=== PATIENT | male | born 1940 | race Caucasian/White ===

== ENCOUNTER 2018-10-02 06:19 | Inpatient (IN) ==
--- NOTE | 2018-09-18 11:52 | Anesthesiology Consultation ---
Date of Service September 18, 2018 Assessment & Plan (1) Encounter for pre-operative examination: Spoke with patient on phone on 09/20/18. He was confused because Dr. Kirby told him that surgeon would give coumadin instructions and they hadn't. I called and spoke to La Nena at [facility], who acknowledged that they had 2 different phone encounters from patient calling to ask for coumadin instructions . She stated that they would talk to Dr. Sen today and call patient with instructions today. Chart Review Chart Review: Acceptable Risk for Surgery and Patient seen in Pre Admission Testing Consults Requested cardiac (Dr. Kirby) Patient was seen by Dr. Kirby on 09/10/18 for preoperative evaluation. Per note, "I see no cardiac contraindication to proceeding on with the planned orthopedic procedure. I would recommend perioperative cardiac monitoring." Teaching & Discussion Pre-Anesthesia Teaching/Discussion Notes: Instructed NPO after midnight before surgery, except medications with 15 cc of water. Medication instructions provided according to the PAT guidelines. History Surgery Operation Date: 10/02/18 13:50 Proposed Procedures p Right Total Knee Arthroplasty - Domingo Sen DO Height/Weight Height: 5 ft 11 in Weight: 134.9 kg Allergies Allergy/AdvReac Type Severity Reaction Status Date / Time No Known Allergies Allergy Verified 09/12/18 11:56 Medications Home Medications Medication Instructions Recorded Confirmed Last Taken atorvastatin 10 mg PO QAM 09/12/18 09/12/18 Unknown carvedilol 25 mg PO BID 09/12/18 09/12/18 Unknown cetirizine [Zyrtec] 10 mg PO QAM 09/12/18 09/12/18 Unknown ferrous sulfate [iron] 325 mg PO QAM 09/12/18 09/12/18 Unknown garlic 1,000 mg PO QAM 09/12/18 09/12/18 Unknown metformin 500 mg PO BID 09/12/18 09/12/18 Unknown multivitamin 1 tab PO QAM 09/12/18 09/12/18 Unknown quinapril 10 mg PO QAM 09/12/18 09/12/18 Unknown repaglinide [Prandin] 0.5 mg PO TID 09/12/18 09/12/18 Unknown sildenafil [Viagra] 100 mg PO DAILY PRN 09/12/18 09/12/18 Unknown tamsulosin 0.4 mg PO HS 09/12/18 09/12/18 Unknown tramadol 50 mg PO TID PRN 09/12/18 09/12/18 Unknown warfarin 5 mg PO UD 09/12/18 09/12/18 Unknown Past Medical History Medical History GI bleed (Resolved) R/T VIOXX USE History of TMJ disorder (Resolved) RESOLVED History of depression (Resolved) Atrial fibrillation DX 6 YEARS AGO - ON WARFARIN - FOLLOWS W/ DR. KRIBY Cardiac murmur Diabetes mellitus, type 2 NIDDM Diverticular disease Hiatal hernia Kidney stones Osteoarthritis Poor historian Presence of combination internal cardiac defibrillator (ICD) and pacemaker PLACED 2 YEARS AGO - UNSURE OF REASON - LAST CHECKED 2 WEEKS AGO - [employer] Sleep apnea Does not use a device. Sleeps on his side. Past Family History Family History Father Family history of diabetes mellitus Mother Family history of diabetes mellitus Aunt Family history of reaction to anesthesia PT REPORTS AUNT WHILE IN OR FOR ABDOMINAL SURGERY - UNSURE IF COMPLICATION R/T TO ANESTHESIA Past Surgical History Surgical History History of cardiac cath 10-12 YEARS AGO - [facility] - ABN STRESS? - NO STENTS/ANGIOPLASTY History of colonoscopy w/ polypectomy History of cystoscopy History of lithotripsy History of total hip arthroplasty BL History of total knee replacement LT Status post excision of lipoma Past Anesthesia History No Hx of Anesthesia Complications and No Family Hx of Anesthesia Complications (Aunt during surgery, unsure if it was due to anesthesia or now. ) History of PONV No Motion Sickness Screening History of Motion Sickness: No Social History Smoking Status: Never smoker Do You Dip or Chew Tobacco: No Hx Alcohol Use: Yes Alcohol type: wine alcohol intake frequency: 0-2 drinks per day (1) Hx Substance Use: No substance use type: does not use Exercise / Class Metabolic Activity II 4-5 Yardwork/Stairs/Walk up hill ([place], mows lawn by hand, walks dog daily, etc. Able to climb FOS. Denies CP or SOB. ) Review of Systems Patient denies chest pain, shortness of breath, dyspnea on exertion, reflux, cough, wheezing, palpitations. +Joint Pain (hands, knee, hip, back) Physical Exam Vital Signs BP: 135/80 P: 55 R: 18 T: 98.2 SPO2: 98% on RA Constitutional + morbidly obese ENMT Thyromental Distance: > or= 3.5 Finger Breadths (3.5) Mallampati Class: II Upper partial Neck normal visual inspection, trachea midline and + facial hair (Advised); neck extension not limited Respiratory normal respiratory effort Auscultation: lungs clear to auscultation bilaterally Cardiovascular Rate/Rhythm: regular rate and regular rhythm Heart Sounds: no murmur Vessels: no carotid bruit Neurologic moves all extremities Psychiatric Orientation: alert and oriented x 3 Testing Electrocardiogram Date: 08/31/18 68bpm, Electronic ventricular pacemaker Chest X-Ray Date: 09/18/18 Findings: + NAD FINDINGS: Cardiomediastinal and hilar silhouettes are within normal limits. Left subclavian pacer/AICD is noted. Possible small hiatal hernia. There is no pneumothorax, pleural effusion, focal airspace consolidation or overt pulmonary edema. Degenerative changes of the shoulders and spine. IMPRESSION: No acute process. Echocardiogram Date: 08/29/18 EF: 50-55% FINAL IMPRESSION: 1. Normal LV wall motion and EF estimated in the range of 50-55%. 2. Enlargement of the left atrium 3. Left ventricular hypertrophy. 4. Very dense sclerotic changes involving both the aortic and mitral valve leaf lets, as well as mitral annular calcification. 5. Trace to mild mitral, tricuspid, aortic, and pulmonic valvular insufficiency. 6. Mild pulmonary hypertension. 7. AICD wire noted traversing the right heart. Stress Test Date: 09/10/18 Type: nuclear (Lexiscan) Findings: + WNL Resting EF: 42% Resting LV Function: normal Resting RWMA: + none Valvular Disease: no significant valvular disease INTERPRETATION: Inconclusive ECG pharmacological stress test secondary to intermittent AICD pacing. FINAL IMPRESSION: Myocardial perfusion SPECT images without evidence for pharmacologically induced ischemia. Global left ventricular hypokinesis with left ventricular EF post stress at 42% (consistent with patient's known history of non ischemic cardiomyopathy). Other Testing Pacemaker Check 08/29/18 (originally a [employer] device placed on 11/20/14, with revision on 04/02/[address] [place] device.) [employer] Assura Mode DDDR Base Rate 50bpm Max Track Rate 120bpm Battery: 4.6-5.0 years remaining Summary: PVAB changed to 130->160ms to avoid false AMS. No AF. Laboratory Results 09/18/18 11:26 Blood Type O Positive 09/18/18 11:26 Antibody Screen NEGATIVE 09/18/18 11:26 PT 26.4 Seconds (9.0-12.0) H 09/18/18 11:26 INR 2.8 (0.9-1.1) H 09/18/18 11: APTT 46.6 Seconds (21.0-31.0) H* 09/18/18 11: Hemoglobin A1c 5.3 % (4.5-5.6) 09/18/18 11:26 Urine Color Yellow 09/18/18 Unknown Urine Appearance Clear (Clear) 09/18/18 Unknown Urine pH 5.5 (4.5-7.5) 09/18/18 Unknown Ur Specific [place] 1.010 (1.000-1.030) 09/18/18 Unknown Urine Protein Negative (Negative) 09/18/18 Unknown Urine Glucose (UA) Negative (Negative) 09/18/18 Unknown Urine Ketones Negative (Negative) 09/18/18 Unknown Urine Nitrite Negative (Negative) 09/18/18 Unknown Ur Leukocyte Esterase 1+ (Negative) H 09/18/18 Unknown Urine WBC (Auto) 5-10 /hpf (0-5) H 09/18/18 Unknown Urine RBC (Auto) 0-4 /hpf (0-4) 09/18/18 Unknown U Hyaline Cast (Auto) 1-5 /lpf (0-5) 09/18/18 Unknown U Epithel Cells (Auto) 0-5 /lpf (0-5) 09/18/18 Unknown Urine Bacteria (Auto) Negative (Negative) 09/18/18 Unknown
--- NOTE | 2018-09-18 12:15 | PAT Medication Instructions ---
Medication Instructions Date of Service September 18, 2018 Home Medications atorvastatin 10 mg PO QAM carvedilol 25 mg PO BID cetirizine [Zyrtec] 10 mg PO QAM ferrous sulfate [iron] 325 mg PO QAM garlic 1,000 mg PO QAM metformin 500 mg PO BID multivitamin 1 tab PO QAM quinapril 10 mg PO QAM repaglinide [Prandin] 0.5 mg PO TID sildenafil [Viagra] 100 mg PO DAILY PRN tamsulosin 0.4 mg PO HS tramadol 50 mg PO TID PRN warfarin 5 mg PO UD ASK your prescriber and surgeon warfarin 5 mg PO UD STOP taking 2 weeks before surgery garlic 1,000 mg PO QAM DO NOT take the morning of surgery cetirizine [Zyrtec] 10 mg PO QAM ferrous sulfate [iron] 325 mg PO QAM metformin 500 mg PO BID multivitamin 1 tab PO QAM quinapril 10 mg PO QAM repaglinide [Prandin] 0.5 mg PO TID Take morning of surgery With a small sip of water, OTHERWISE NOTHING TO EAT OR DRINK AFTER MIDNIGHT: atorvastatin 10 mg PO QAM carvedilol 25 mg PO BID tramadol 50 mg PO TID PRN Take evening before surgery carvedilol 25 mg PO BID metformin 500 mg PO BID repaglinide [Prandin] 0.5 mg PO TID sildenafil [Viagra] 100 mg PO DAILY PRN tamsulosin 0.4 mg PO HS tramadol 50 mg PO TID PRN Other Notes If you have any questions please call us at [phone] or [phone] or [phone] or [phone]
--- NOTE | 2018-09-18 12:39 | XRay Report ---
XR chest Pre-admission PA/Lat HISTORY: 77 years-old Male pat preoperative exam. No acute chest complaints COMPARISON: None available TECHNIQUE: PA and lateral views of the chest FINDINGS: Cardiomediastinal and hilar silhouettes are within normal limits. Left subclavian pacer/AICD is noted . Possible small hiatal hernia. There is no pneumothorax, pleural effusion, focal airspace consolidat ion or overt pulmonary edema. Degenerative changes of the shoulders and spine. IMPRESSION: No acute process. The above report was generated using voice recognition software. It may contain grammatical, syntax o r spelling errors. Electronically signed by: Frandy Leija M.D. 09/18/2018 12:38 PM
[2018-09-18 13:04] LABS: Appearance Urine Clear (Clear); Bacteria Urine Automated Negative (Negative); Bilirubin Urine Negative (Negative); Blood Urine 3+ (Negative); Color Urine Yellow; Epithelial Cell Urine Auto 0-5 /lpf (0-5); Glucose Urine UA Negative (Negative); Ketones Urine Negative (Negative); Leukocyte Esterase Urine 1+ (Negative); Nitrite Urine Negative (Negative); Protein Urine Negative (Negative); RBC Urine Automated 0-4 /hpf (0-4); Urobilinogen Urine Negative (Negative); pH Urine 5.5 (4.5-7.5)
[2018-09-18 13:07] LABS: Albumin Level 3.8 gm/dl (3.4-5.0); BUN Creatinine Ratio 19.7 (10-20); Calcium 9.9 mg/dl (8.5-10.1); Creatinine Clr Calc Pharmacy 106.5 ml/min; Est GFR (African American) 99.3; Est GFR (Non-African American) 85.7; INR 2.8 (0.9-1.1); Partial Thromboplastin Ratio 1.7; Potassium 4.6 mmol/L (3.5-5.1); Prothrombin Time 26.4 Seconds (9.0-12.0)
[2018-09-18 13:11] LABS: Partial Thromboplastin Time 46.6 Seconds (21.0-31.0)
[2018-09-18 13:33] LABS: Estimated Average Glucose 105 mg/dl; Hemoglobin A1C 5.3 % (4.5-5.6)
--- NOTE | 2018-09-19 19:21 | History & Physical Report ---
Date of Service September 18, 2018 Date of Surgery: 10/02/18 Assessment & Plan (1) Tricompartment osteoarthritis of right knee: Risks and benefits of procedure discussed in detail today, patient would like to proceed with a Right TKA @ [facility] as scheduled on 10/02/18. will obtain medical clearance prior to surgery as well as cardiac as obtain PATs at [facility]. Will need to stop his Coumadin 5 days prior to surgery, will discuss with cardiac if bridging is needed, f/u 2 weeks post op for routine post-operative care and xray, sooner if having any problems. will make arrangements for HHPT at the time of discharge. History of Present Illness Chief Complaint: right knee pain Primary Care Provider: Jose Ramon Crowe Mr Roberts is a 77 year old male who is here for a follow up of right knee pain, presents for pre-op evaluation prior to Right total knee replacement on 10/02/18. His PCP is Dr. Crowe. Patient states that he has a walker at home. Patient gets Tramadol from pain management and he has been taking it since 2016. He presents with pain and crepitus on the right side. He states that the symptoms have been chronic non-traumatic and the symptoms occur constantly. Currently the patient states that the symptoms are mild-moderate. The pain is described as aching, discomforting and throbbing. The symptoms occur intermittently. He rates his current pain as 3/10, worst is 7/10. The symptoms are aggravated by ascending stairs, descending stairs, daily activities, first steps while awake and walking. In addition to right knee pain the patient is also experiencing limping. Patient takes Coumadin daily. Patient takes Tramadol for pain. He has undergone prior Euflexxa injection with no relief. Allergies Allergy/AdvReac Type Severity Reaction Status Date / Time No Known Allergies Allergy Verified 09/12/18 11:56 Home Medications Home Medications Medication Instructions Recorded Confirmed Type atorvastatin 10 mg PO QAM 09/12/18 09/12/18 History carvedilol 25 mg PO BID 09/12/18 09/12/18 History cetirizine [Zyrtec] 10 mg PO QAM 09/12/18 09/12/18 History ferrous sulfate [iron] 325 mg PO QAM 09/12/18 09/12/18 History garlic 1,000 mg PO QAM 09/12/18 09/12/18 History metformin 500 mg PO BID 09/12/18 09/12/18 History multivitamin 1 tab PO QAM 09/12/18 09/12/18 History quinapril 10 mg PO QAM 09/12/18 09/12/18 History repaglinide [Prandin] 0.5 mg PO TID 09/12/18 09/12/18 History sildenafil [Viagra] 100 mg PO DAILY PRN 09/12/18 09/12/18 History tamsulosin 0.4 mg PO HS 09/12/18 09/12/18 History tramadol 50 mg PO TID PRN 09/12/18 09/12/18 History warfarin 5 mg PO UD 09/12/18 09/12/18 History Past Med/Surg History Medical History GI bleed (Resolved) R/T VIOXX USE History of TMJ disorder (Resolved) RESOLVED History of depression (Resolved) Atrial fibrillation DX 6 YEARS AGO - ON WARFARIN - FOLLOWS W/ DR. SAINI Cardiac murmur Diabetes mellitus, type 2 NIDDM Diverticular disease Hiatal hernia Kidney stones Osteoarthritis Poor historian Presence of combination internal cardiac defibrillator (ICD) and pacemaker PLACED 2 YEARS AGO - UNSURE OF REASON - LAST CHECKED 2 WEEKS AGO - [facility] Sleep apnea Does not use a device. Sleeps on his side. Surgical History History of cardiac cath 10-12 YEARS AGO - [facility] - ABN STRESS? - NO STENTS/ANGIOPLASTY History of colonoscopy w/ polypectomy History of cystoscopy History of lithotripsy History of total hip arthroplasty BL History of total knee replacement LT Status post excision of lipoma Family History Father Family history of diabetes mellitus Mother Family history of diabetes mellitus Aunt Family history of reaction to anesthesia PT REPORTS AUNT WHILE IN OR FOR ABDOMINAL SURGERY - UNSURE IF COMPLICATION R/T TO ANESTHESIA Social History Preferred Language: Albanian Communication Ability: Effective Houseperson Required: No Beliefs That Will Affect Care: None Current Living Situation: Alone Other Information That Helps Us Care for You: No Feels Safe at Home: Yes Safety Concerns: Feels Safe At This Time Smoking Status: Never smoker Hx Alcohol Use: Yes Hx Substance Use: No Review of Systems All systems reviewed & are unremarkable except as noted in HPI & below Constitutional: no fever, no chills and no sweats Respiratory: no cough and no dyspnea Cardiovascular: no chest pain, no dyspnea and no orthopnea Gastrointestinal: no nausea and no vomiting Integumentary: no rash and no lesions Physical Exam Vital Signs (Past 24 Hours): Ht: 5ft 11in Wt: 234.9kg BP: 144/88 Pulse: 78 Constitutional: WD/WN, vitals as above no acute distress Respiratory: normal respiratory effort, lungs clear to auscultation Cardiovascular: Rate/Rhythm: regular rate and regular rhythm Heart Sounds: no murmur Gastrointestinal (Abdomen): normal bowel sounds, soft, nontender, no hepatosplenomegaly Musculoskeletal: Right Knee Exam He ambulates with a limp, overall he has varus alignment, there is no atrophy or ecchymosis, mild effusion, diffuse tenderness to the knee greatest over medial compartment, negative patellar apprehension , mild crepitation with motion, Patella position is neutral, timoteo's negative, Sean's - lateral positive, Sean's - medial positive, Posterior drawer- negative, anterior drawer negative, valgus stress negative, varus stress negative, no extensor lag, pain with active range of motion, range of motion 0/5/115. No pain with active/passive ROM of ankle. Lower extremity strength normal. Lower extremity neuro-vascular is normal Skin: no rashes and no lesions Results & Data Diagnostic Findings Right Knee 3 view series showing showing advanced degenerative changes to the right knee, narrowing of the medial compartment and patello-femoral joint with patellar spurring noted, findings showing medial joint space narrowing of the medial compartment with osteophyte formation and subchondral sclerosis noted. overall varus alignment. no acute bony pathology noted.
[~2018-10-02 06:19] MED LIST: ACETAMINOPHEN 500 MG TAB PO SCH; CEFAZOLIN 3000MG 65 ML IV SCH; CeleBREX 200 MG CAP PO SCH; FAMOTIDINE 20 MG TAB PO SCH; GABAPENTIN 300 MG PO SCH; LR 500ML BOLUS, THEN 15ML/HR IV SCH; METOCLOPRAMIDE HCL 10 MG TABLET PO SCH; ROPIVACAINE 0.5% HCL/PF 150 MG, BUPIVACAINE 0.5% MPF 30 ML, EPINEPHrine 30MG/30ML (OR U... INFIL SCH; TRANEXAMIC ACID 1,000 MG **IV Pre-op IV SCH; dexAMETHasone 4 MG TAB PO SCH
[2018-10-02] MEDS ORDERED: TRANEXAMIC ACID 1,000 MG **IV Intra-op IV SCH (06:30)
[2018-10-02] MEDS ORDERED: BUPIVACAINE 0.5 % 5 MG/1 ML PF 10ML VIAL ONE (06:33)
[2018-10-02] MEDS ORDERED: ROPIVACAINE 0.5% 5 MG/ML 30 ML VIAL ONE (06:33)
[2018-10-02 07:37] LABS: INR 1.1 (0.9-1.1); Partial Thromboplastin Ratio 1.1; Prothrombin Time 11.6 Seconds (9.0-12.0)
[2018-10-02] MEDS ORDERED: fentaNYL citrate 100 MCG/2 ML VIAL ONE (07:37)
[2018-10-02] MEDS ORDERED: MIDAZOLAM HCL 1 MG/ML 2ML VIAL ONE (07:37)
--- NOTE | 2018-10-02 08:34 | History & Physical Bridge Note ---
Date of Service October 02, 2018 History & Physical Bridge Note I have examined the patient, reviewed the History & Physical and in the interval since the performance of the History & Physical I have noted the following changes of clinical significance: no changes noted
[2018-10-02] MEDS ORDERED: POVIDONE-IODINE OP SOLN 30 ML BTL ONE (09:05)
[2018-10-02] MEDS ORDERED: BACITRACIN INJ 50,000 UNIT VIAL ONE (09:05)
[2018-10-02] MEDS ORDERED: ORTHO JOINT ANESTHETIC ONE (09:05)
[2018-10-02] MEDS ORDERED: PROPOFOL IV EMULSION 10 MG/ML 20 ML VIAL IV ONE (10:16)
[2018-10-02] MEDS ORDERED: LIDOCAINE HCL 2% 2 ML VIAL/AMP(20MG/ML) INFIL ONE (10:16)
--- NOTE | 2018-10-02 10:40 | Anesthesiology Progress Note ---
Date of Service October 02, 2018 [address] with the [facility] who assured me that taping a magnet over the ICD will definitely disable the device and removing the magnet will cause it to revert to its previous settings. Physical Exam Vital Signs Last Vital Signs Temp 36.9 C 10/02/18 07:47 Pulse 50 L 10/02/18 07:47 Resp 18 10/02/18 07:47 BP 163/77 H 10/02/18 07:47 Pulse Ox 95 10/02/18 07:47 Results & Data Medications Administered Acetaminophen (Tylenol) 1,000 mg PO PREOP NAT Stop: 10/02/18 18:00 Last Admin: 10/02/18 08:03 Dose: 1,000 mg Documented by: [id number] Celecoxib (Celebrex) 200 mg PO PREOP NAT Stop: 10/02/18 18:00 Last Admin: 10/02/18 08:04 Dose: 200 mg Documented by: [id number] Dexamethasone (Decadron) 8 mg PO PREOP NAT Stop: 10/02/18 18:00 Last Admin: 10/02/18 08:03 Dose: 8 mg Documented by: [id number] Famotidine (Pepcid) 20 mg PO PREOP NAT Stop: 10/02/18 18:00 Last Admin: 10/02/18 08:03 Dose: 20 mg Documented by: [id number] Gabapentin (Neurontin) 300 mg PO PREOP NAT Stop: 10/02/18 18:00 Last Admin: 10/02/18 08:03 Dose: 300 mg Documented by: [id number] Lactated Ringer's (Lr) 1,000 mls @ 15 mls/hr IV .Q24H NAT Stop: 10/02/18 18:00 Last Infusion: 10/02/18 09:42 Dose: 0 mls/hr Documented by: [id number] Admin: 10/02/18 07:45 Dose: 15 mls/hr Documented by: [id number] Cefazolin Sodium (Ancef 3000mg) 65 mls @ 130 mls/hr IV PREOP NAT; Protocol Stop: 10/02/18 18:00 Last Admin: 10/02/18 09:39 Dose: 130 mls/hr Documented by: [id number] Metoclopramide HCl (Reglan) 10 mg PO PREOP NAT Stop: 10/02/18 18:00 Last Admin: 10/02/18 08:03 Dose: 10 mg Documented by: [id number]
--- NOTE | 2018-10-02 11:01 | Operative Report ---
Post Operative Report Pre & Post Diagnosis Operation Date: 10/02/18 09:40 Pre-Op Diagnosis: Right Knee Osteoarthritis Post-Op Diagnosis: Right Knee Osteoarthritis Procedure Operation Date: 10/02/18 09:40 Actual Procedures p Right Total Knee Arthroplasty(Right) utilizing journey to non-bloc total knee arthroplasty size 7 femur 6 tibia 11 polyethylene 32 oval patella- Domingo Sen DO Surgeon Domingo Sen DO Covered Button Maker Sonny OG Estimated Blood Loss 5 Findings Consistent with Post-Op Diagnosis Patient presents with severe end-stage DJD varus alignment bone to bone changes subchondral cystic changes marginal osteophytes varus alignment of approximately 5 degrees with large effusion patient has had a long-standing DJD the above findings are noted with eburnated [id number] tricompartmentally Specimens Bone and cartilage Drains Medium bore Hemovac Complications none Disposition Accompanied Patient To Recovery: No Disposition: Recovery Room Indications Patient presents with severe end-stage tricompartmental degenerative joint disease described above patient's a failed attempts at conservative management with physical therapy anti-inflammatories relative rest activity modifications corticosteroid injections Visco supplementations bracing patient presents for right total knee arthroplasty Description of Procedure After proper prepping and draping of the Right lower extremity anterior midline incision was made over the region of the extensor extensor mechanism after meticulous hemostasis was obtained and maintained in subcutaneous tissues a medial parapatellar incision was made The patella was subluxed lateralward the medial lateral gutter were cleaned from any hypertrophic synovitis and scar tissue of the distal femoral block was placed and the distal femoral osteotomy cut was made subsequently the chamfers anterior and posterior osteotomy cuts were made utilizing the 4-in-1 block the tibia was subsequently subluxed anteriorward medial and ateral meniscal remnants were excised in their entirety remnants of the anterior and posterior cruciate ligaments were excised in their entirety excellent exposure of the proximal tibia was obtained the tibial osteotomy guide was placed on the proximal tibial osteotomy cut was made once again the knee was irrigated with copious amounts of sterile saline solution the patella was subsequently everted lateralward thickened scar tissue around the patella was removed the patella was subsequently cut utilizing a freehand technique and was drilled prepared for final preparation and placement of patella socially flexion-extension gaps were checked and the equal and symmetric trials were placed to the appropriate femoral and tibial trials with poly-spacer being placed for equal flexion and extension gaps and full range of motion including extension to 0 and flexion to 140 the trial components after having been taken to recovery range of motion was subsequently removed meticulous hemostasis was obtained and maintained subsequently a knee block injection of joint cocktail including ropivacaine 0.5% 150 mg. Bupivacaine 0.5% epinephrine 1-200,030 mL's toradol 30 mg dexamethasone 4 mg ketamine 10 mg clonidine 100 micrograms normal saline solution 30 mg was infiltrated into the soft tissues of the posterior knee medial lateral gutters and periosteal synovium special attention was paid to protect neurovascular structures at all times subsequently trial components having been removed the knee was irrigated with sterile saline solution. debris was removed the proximal tibia was subsequently prepared and was made ready for the placement of the tibial component tibial component was also cemented and tamped into position the femoral component was subsequently placed and cemented in the position the patellar component was subsequently cemented in position because hemostasis once again obtained and maintained wound having been thoroughly irrigated with debridement and debridement lavage was performed as well as a medial parapatellar incision closed with #1 Vicryl in interrupted fashion subcutaneous was closed with #2 Vicryl skin was closed with skin clips. PA-C was necessary for prepping and drapping as well as wound closure of deep fascia Sub cutaneous tissue and skin and was necessary for the case. A sterile compressive dressing was placed patient was taken to recovery in stable condition of report dictated by Mckinley I attest to the content of the Intraoperative Record and any orders documented therein. Any exceptions are noted below. I attest to the content of the Intraoperative Record and any orders documented therein. Any exceptions are noted below.
[2018-10-02] MEDS ORDERED: HYDROmorphone INJ 1 MG/ML SYRINGE IV PRN ×2 (12:02→12:15)
[2018-10-02] MEDS ORDERED: ONDANSETRON INJ 2 MG/ML 2 ML VIAL IV PRN (12:02)
[2018-10-02] MEDS ORDERED: BISACODYL 10 MG SUPP PR PRN (12:02)
[2018-10-02] MEDS ORDERED: METOCLOPRAMIDE HCL INJ 5 MG/ML 2 ML VIAL IV PRN (12:02)
[2018-10-02] MEDS ORDERED: ALUMINUM/MAGNESIUM SUSP 30 ML UDC PO PRN (12:02)
[2018-10-02] MEDS ORDERED: NALOXONE HCL 0.4 MG/1 ML VIAL/CARP IV PRN (12:02)
[2018-10-02] MEDS ORDERED: MAGNESIUM HYDROXIDE SUSP 30 ML UDC PO PRN (12:02)
[2018-10-02] MEDS ORDERED: ATROPINE SULFATE 0.1 MG/ML 10ML SYR IV PRN (12:15)
[2018-10-02] MEDS: HydrALAZINE HCL 20 MG/ML VIAL ONE ×3 (12:15→13:26)
[2018-10-02] MEDS ORDERED: ePHEDrine sulfate 50 MG/ML AMP IV PRN (12:15)
[2018-10-02] MEDS ORDERED: PHARMACY GLYCEMIC MGMT CONSULT PRN (12:20)
[2018-10-02] MEDS ORDERED: CARBOHYDRATES FOR HYPOGLYCEMIA PO PRN (12:30)
[2018-10-02] MEDS ORDERED: GLUCOSE 10 TABS/TUBE PO PRN (12:30)
[2018-10-02] MEDS ORDERED: DEXTROSE 50% 50 ML SYRINGE IV PRN (12:30)
[2018-10-02] MEDS ORDERED: GLUCAGON FOR INJ 1 MG VIAL IM PRN (12:30)
[2018-10-02] MEDS ORDERED: GLUCOSE 40% GEL 15 GM TUBE PO PRN (12:30)
[2018-10-02] MEDS ORDERED: HydrALAZINE HCL 20 MG/ML VIAL IV STA (12:40)
--- NOTE | 2018-10-02 12:54 | XRay Report ---
XR knee RT 2V routine CLINICAL HISTORY: 77 years-old Male presenting with Surgical Post Op. TECHNIQUE: Frontal and lateral views of the right knee were obtained. COMPARISON: None. FINDINGS: Postsurgical changes of total right knee arthroplasty with patellar resurfacing. Expected intra-artic ular and soft tissue emphysema. Surgical drain in place. No periprosthetic fracture or malalignment. IMPRESSION: Expected postsurgical appearance status post total right knee arthroplasty with patellar resurfacing. Electronically signed by: Adair Toscano M.D. 10/02/2018 12:53 PM
[2018-10-02] MEDS ORDERED: SODIUM CHLORIDE 0.9% 1000ML 1,000 ML IV SCH (13:30)
--- NOTE | 2018-10-02 14:04 | Anesthesiology Progress Note ---
Date of Service October 02, 2018 Anesthesia Post Procedure Vital Signs Vital Signs: Temp Pulse Pulse Resp BP Pulse Ox 10/02/18 13:38 56 L 20 162/78 H 95 10/02/18 13:10 36.3 C L 62 14 146/70 H 96 10/02/18 12:40 36.3 C L 50 L 16 152/68 H 95 10/02/18 12:30 50 L 16 165/80 H 95 10/02/18 12:20 50 L 16 167/79 H 95 10/02/18 12:10 50 L 16 186/82 H 95 10/02/18 12:00 50 L 16 169/72 H 95 10/02/18 11:50 56 L 16 166/89 H 94 10/02/18 11:44 36.0 C L 56 L 16 148/83 H 94 10/02/18 07:47 36.9 C 50 L 18 163/77 H 95 Notes Mental Status: alert / awake / arousable Patient Amnestic to Procedure: Yes Nausea / Vomiting: adequately controlled Pain: adequately controlled Airway Patency, RR, SpO2: stable & adequate BP & HR: stable & adequate Hydration State: stable & adequate Anesthetic Complications: no major complications apparent and Pt Satisfied with anesthetic care
--- NOTE | 2018-10-02 14:41 | Consultation ---
Date of Consultation October 02, 2018 Assessment & Plan (1) Tricompartment osteoarthritis of right knee: S/p R. TKA with Dr. Sen on 10/02 without any complications. Presently has scant sanguinous drainage from his drain. - Post-operative care per primary team (2) Atrial fibrillation: Long-standing. On warfarin at home; INR was 1.1 on day of surgery. - Continue beta-delmar - Restart warfarin when approved by primary team; Chads-Vasc of 4. No need to bridge prior to discharge, given he is a medium-risk patient with a fairly high- risk surgery. (3) Hypertension: BP is 160/80 post-operatively. - Continue beta-delmar - Quinapril is not on formulary; switch to enalapril (4) Diabetes mellitus, type 2: Only on metformin and repaglinide as outpatient. - Sliding scale insulin History of Present Illness Attending Physician: Domingo Sen DO History of Present Illness 77-year-old male with a history of hypertension diabetes, A. fib who presents as a postop medical consult after a right TKA with Dr. Sen on 10/02. Operative report indicates no complications for the surgery. The patient is in no acute distress in bed. He still under some effects of the anesthesia, so he easily dozes off during our conversation. But he denies any right knee pain, any shortness of breath, chest pain, rash, nausea, vomiting, or other systemic symptoms. Per the RN, he has had mild sanguinous drainage from his right knee drain, but otherwise no complications. Allergies Allergy/AdvReac Type Severity Reaction Status Date / Time No Known Allergies Allergy Verified 10/02/18 07:33 Home Medications Home Medications Medication Instructions Recorded Confirmed Type atorvastatin 10 mg PO QAM 09/12/18 10/02/18 History carvedilol 25 mg PO BID 09/12/18 10/02/18 History cetirizine [Zyrtec] 10 mg PO QAM 09/12/18 10/02/18 History ferrous sulfate [iron] 325 mg PO QAM 09/12/18 10/02/18 History garlic 1,000 mg PO QAM 09/12/18 10/02/18 History metformin 500 mg PO BID 09/12/18 10/02/18 History multivitamin 1 tab PO QAM 09/12/18 10/02/18 History quinapril 10 mg PO QAM 09/12/18 10/02/18 History repaglinide [Prandin] 0.5 mg PO TID 09/12/18 10/02/18 History sildenafil [Viagra] 100 mg PO DAILY PRN 09/12/18 09/12/18 History tamsulosin 0.4 mg PO HS 09/12/18 10/02/18 History tramadol 50 mg PO TID PRN 09/12/18 10/02/18 History warfarin 5 mg PO UD 09/12/18 10/02/18 History Patient History Medical History GI bleed (Resolved) R/T VIOXX USE History of TMJ disorder (Resolved) RESOLVED Atrial fibrillation DX 6 YEARS AGO - ON WARFARIN - FOLLOWS W/ DR. SAINI Cardiac murmur Diabetes mellitus, type 2 NIDDM Diverticular disease Hiatal hernia Kidney stones Osteoarthritis Poor historian Presence of combination internal cardiac defibrillator (ICD) and pacemaker PLACED 2 YEARS AGO - UNSURE OF REASON - LAST CHECKED 2 WEEKS AGO - [employer] Sleep apnea Does not use a device. Sleeps on his side. Surgical History History of cardiac cath 10-12 YEARS AGO - [facility] - ABN STRESS? - NO STENTS/ANGIOPLASTY History of colonoscopy w/ polypectomy History of cystoscopy History of lithotripsy History of total hip arthroplasty BL History of total knee replacement LT Status post excision of lipoma Family History Father Family history of diabetes mellitus Mother Family history of diabetes mellitus Aunt Family history of reaction to anesthesia PT REPORTS AUNT WHILE IN OR FOR ABDOMINAL SURGERY - UNSURE IF COMPLICATION R/T TO ANESTHESIA Social History Preferred Language: [place] Communication Ability: Effective Manager Of Construction Required: No Beliefs That Will Affect Care: None Current Living Situation: Alone Other Information That Helps Us Care for You: No Feels Safe at Home: Yes Safety Concerns: Feels Safe At This Time Smoking Status: Never smoker Hx Alcohol Use: Yes Hx Substance Use: No Review of Systems Constitutional: no fever, no chills and no sweats Eyes: no diplopia Ear, Nose, Mouth, Throat: no ear trauma, no nasal discharge and no dental pain Respiratory: no cough, no chest congestion and no dyspnea Cardiovascular: no chest pain, no dyspnea on exertion, no palpitations and no syncope Gastrointestinal: no abdominal pain, no belching, no constipation, no diarrhea/loose stools, no blood in stools and no melena Musculoskeletal: no back pain, no joint pain and no muscle weakness Integumentary: no rash, no skin ulcer and no erythema Neurologic: no generalized weakness, no loss of sensation, no numbness and no paresthesia Psychiatric: no depression and no anxiety Endocrine: no fatigue, no polydipsia and no polyphagia Physical Exam Vital Signs (Past 24 Hours): Last Vital Signs Temp 36.3 C L 10/02/18 13:10 Pulse 56 L 10/02/18 14:06 Resp 22 10/02/18 14:06 BP 159/81 H 10/02/18 14:06 Pulse Ox 97 10/02/18 14:06 Constitutional: WD/WN, vitals as above Eyes: EOM intact bilaterally; no conjunctival abnormality ENMT: external ear and nose normal, oropharynx normal Neck: trachea midline, no thyromegaly normal visual inspection Respiratory: normal respiratory effort, lungs clear to auscultation no respiratory distress Cardiovascular: RRR, no murmur, no edema Gastrointestinal (Abdomen): Inspection/Auscultation: abdomen normal to inspection; abdomen not distended Musculoskeletal: no cyanosis or clubbing, extremities motor strength 5/5 Knee: + knee abnormal to inspection (Right knee bandaged) and + surgical drain present Skin: no rashes, warm and dry Neurologic: moves all extremities and awake Psychiatric: Orientation: alert, oriented to person and cooperative
[2018-10-02] MEDS: INSULIN ASPART 100 UNITS/ML 3 ML PEN SC SCH ×3 (14:46→20:53)
[2018-10-02] MEDS: ORTHO WARFARIN NOMOGRAM SCH (14:52)
--- NOTE | 2018-10-02 15:18 | Pharmacy Report ---
Glycemic Control Consultation - Date of Service October 02, 2018 - Scope Scope: Glycemic Pharmacist consulted by Dr Reagan on [10-02-18] for glycemic control and to write orders per [facility] inpatient glycemic control protocol - Objective Weight: 134.127 kg Accuchecks BSG (last 24hrs): 10/02/18 10/02/18 07:16 14:36 POC Glucose 121 H 111 H HbA1c: Hemoglobin A1c 5.3 % (4.5-5.6) 09/18/18 11:26 - Recent Pertinent Medications Outpatient Anti-diabetic Regimen: * metformin 500 bid, prandin 0.5 mg TID * A1c = 5.3 % [date] Risk Factors for Insulin Resistance: * Steroids: ortho/dex, dex po intraop * Recent Surgery: POD 0 * Diet: T2DM - Assessment & Plan Assessment & Plan: ASSESSMENT: * 77 year old male now s/p R TKA. Type 2 diabetic managed on metformin and prandin at home. A1C indicates excellant control outpatient. * Patient received ortho/dex and dexamethasone preop, therefore anticipate steroid induced hyperglycemia - therefore will utilize basal/bolus dosing for postop PLAN FOR INPATIENT GLYCEMIC CONTROL: * Pt is maintained on oral antidiabetic agents as an outpatient * Oral agents are not recommended for inpatient use d/t drug interactions, changing PO intake, and difficulty titrating for acute hyper/hypoglycemia. ADA recommends re-initiating outpatient oral agents 1-2 days prior to discharge if/when appropriate if they were held on admission. * Will hold oral agents for admission and utilize SQ basal bolus insulin regimen which is the recommended regimen for inpatient glycemic control. * Will initiate weight based insulin dosing for insulin afua patient and titrate based on BSG trends. * Basal insulin * Lantus scale for tonight based upon BSG -For BSG <160 - no Lantus -For BSG 160-200 mg/dL - Lantus 15 units -For BSG >200 mg/dL - Lantus 20 units * Bolus insulin - add overnight scale * NovoLog per scale ACHS or Q6hrs while NPO * Goal Range: Low 120 mg/dL - High 160 mg/dL * Correction Factor: 15 mg/dL/unit * Nutritional / Prandial insulin per carb ratio of 1 unit per 5 grams CHO consumed * Please note that the plan above was derived based on current level of insulin resistance and hospital stress. These recommendations are appropriate for inpatient admission only. Plan of care upon discharge will need to be reassessed to avoid potential outpatient hypo/hyperglycemia. Thank you.
[2018-10-02] MEDS: ENALAPRIL MALEATE 10 MG TAB PO SCH (15:33)
[2018-10-02] MEDS: ACETAMINOPHEN 500 MG TAB PO SCH ×2 (15:34→21:42)
[2018-10-02] MEDS ORDERED: WARFARIN SOD 5 MG TAB PO SCH (16:00)
[2018-10-02] MEDS: CEFAZOLIN 2000MG 2,000 MG/15 ML SYR IV SCH (18:47)
[2018-10-02] MEDS: DOCUSATE SODIUM 100 MG CAP PO SCH (20:33)
[2018-10-02] MEDS: SENNA 8.6 MG TAB PO SCH (20:34)
[2018-10-02] MEDS: CARVEDILOL 25 MG TAB PO SCH (20:34)
[2018-10-02] MEDS: KETOROLAC TROMETHAMINE 15 MG/ML VIAL IV SCH (20:35)
[2018-10-02] MEDS: TAMSULOSIN HCL 0.4 MG CAP PO SCH (20:35)
[2018-10-02] MEDS ORDERED: INSULIN GLARGINE SOLOSTAR 100 UNITS/ML 3 ML PEN SQ SCH (21:00)
[2018-10-02] MEDS ORDERED: LANTUS PER UNIT CHARGE SQ SCH (21:00)
[2018-10-03] MEDS: INSULIN ASPART 100 UNITS/ML 3 ML PEN SC SCH ×6 (00:32→21:47)
[2018-10-03] MEDS: KETOROLAC TROMETHAMINE 15 MG/ML VIAL IV SCH ×3 (02:10→14:41)
[2018-10-03] MEDS: CEFAZOLIN 2000MG 2,000 MG/15 ML SYR IV SCH (02:11)
[2018-10-03] MEDS: ACETAMINOPHEN 500 MG TAB PO SCH ×3 (05:49→21:53)
--- NOTE | 2018-10-03 08:02 | Anesthesiology Progress Note ---
Date of Service October 03, 2018 Anesthesia Post Procedure Vital Signs Vital Signs: Temp Pulse Pulse Resp BP Pulse Ox 10/03/18 04:00 36.5 C 50 L 18 150/69 H 96 10/02/18 23:13 36.7 C 55 L 18 155/68 H 97 10/02/18 20:32 65 121/67 92 10/02/18 18:44 37.0 C 79 19 142/66 H 93 10/02/18 16:14 36.4 C L 54 L 18 171/71 H 96 10/02/18 15:10 36.4 C L 55 L 18 167/76 H 97 10/02/18 14:06 56 L 22 159/81 H 97 10/02/18 13:38 56 L 20 162/78 H 95 10/02/18 13:10 36.3 C L 62 14 146/70 H 96 10/02/18 12:40 36.3 C L 50 L 16 152/68 H 95 10/02/18 12:30 50 L 16 165/80 H 95 10/02/18 12:20 50 L 16 167/79 H 95 10/02/18 12:10 50 L 16 186/82 H 95 10/02/18 12:00 50 L 16 169/72 H 95 10/02/18 11:50 56 L 16 166/89 H 94 10/02/18 11:44 36.0 C L 56 L 16 148/83 H 94 Notes Mental Status: alert / awake / arousable and participated in evaluation Patient Amnestic to Procedure: Yes Nausea / Vomiting: adequately controlled Pain: adequately controlled Airway Patency, RR, SpO2: stable & adequate BP & HR: stable & adequate Hydration State: stable & adequate Neuraxial Anesthesia: was administered and sensory block resolved Anesthetic Complications: no major complications apparent and Pt Satisfied with anesthetic care
[2018-10-03 08:14] LABS: Hematocrit (blood only) 34.8 % (42-52); Mean Corpuscular Hgb Conc 31.6 g/dL (32-36); Mean Corpuscular Volume 94.3 fL (80-100); Mean Platelet Volume 10.6 fL (7.4-10.4); Platelet Count 149 K/uL (130-400); RDW Coefficient of Variation 12.5 % (11.5-14.5); RDW Standard Deviation 42.9 fL (36.4-46.3); Red Blood Count 3.69 M/uL (4.7-6.1); White Blood Count 12.43 K/uL (4.8-10.8)
[2018-10-03 08:24] LABS: INR 1.2 (0.9-1.1); Prothrombin Time 11.8 Seconds (9.0-12.0)
[2018-10-03] MEDS: ATORVASTATIN 10 MG TAB PO SCH (08:31)
[2018-10-03] MEDS: CETIRIZINE HCL 10 MG TABLET PO SCH (08:31)
[2018-10-03 08:32] LABS: BUN Creatinine Ratio 17.4 (10-20); Calcium 9.6 mg/dl (8.5-10.1); Creatinine Clr Calc Pharmacy 104.5 ml/min; Est GFR (African American) 98.3; Est GFR (Non-African American) 84.8; Potassium 3.9 mmol/L (3.5-5.1)
[2018-10-03] MEDS: ENALAPRIL MALEATE 10 MG TAB PO SCH (08:32)
[2018-10-03] MEDS: CARVEDILOL 25 MG TAB PO SCH ×2 (08:32→21:48)
[2018-10-03] MEDS: DOCUSATE SODIUM 100 MG CAP PO SCH ×2 (08:33→21:52)
[2018-10-03] MEDS: MULTIVITAMIN TAB PO SCH (08:33)
[2018-10-03] MEDS: FERROUS SULFATE 325 MG TAB PO SCH (08:33)
--- NOTE | 2018-10-03 08:35 | Orthopedic Progress Note ---
Date of Service October 03, 2018 Assessment & Plan (1) Tricompartment osteoarthritis of right knee: PT/OT; WBAT DVT Proph - Coumadin,SCD's, [place]'s Pain managment as written DC plans - OPPT Subjective POD 1 s/p Right TKA Pt sitting up in bed; Awake, alert. Pain controlled presently. States he had some pain with ambulation yesterday. Denies SOB,CP,LH. States his right foot was numb (foot drop) yesterday but that is wearing off. Physical Exam Vital Signs (Past 24 Hours): Last Vital Signs Temp 36.5 C 10/03/18 04:00 Pulse 50 L 10/03/18 04:00 Resp 18 10/03/18 04:00 BP 150/69 H 10/03/18 04:00 Pulse Ox 96 10/03/18 04:00 Physical Exam: Dressings C/D/I. Calves soft, NT. NV intact. HV 225ml's latest shift. Good DF/PF right foot. Some residual numbness. Results & Data Laboratory Results 10/03/18 10/03/18 10/03/18 Range/Units 08:17 07:35 07:35 WBC (4.8-10.8) K/uL RBC (4.7-6.1) M/uL Hgb (14.0-18.0) g/dL Hct (42-52) % MCV (80-100) fL MCH (25-34) pg MCHC (32-36) g/dL RDW Std Deviation (36.4-46.3) fL RDW Coeff of Buzz (11.5-14.5) % Plt Count (130-400) K/uL MPV (7.4-10.4) fL PT 11.8 (9.0-12.0) Seconds INR 1.2 H (0.9-1.1) Sodium 143 (136-145) mmol/L Potassium 3.9 (3.5-5.1) mmol/L Chloride 111 H (98-107) mmol/L Carbon Dioxide 28 (21-32) mmol/L Anion Gap 5.0 (3-11) BUN 15 (7-18) mg/dl Creatinine 0.86 (0.6-1.4) mg/dl Est Cr Clr Drug Dosing 104.5 ml/min Est GFR ( Amer) 98.3 Est GFR (Non-Af Amer) 84.8 BUN/Creatinine Ratio 17.4 (10-20) Glucose 124 H (70-99) mg/dl POC Glucose 113 H (70-99) Calcium 9.6 (8.5-10.1) mg/dl 10/03/18 10/03/18 10/03/18 Range/Units 07:35 03:57 00:17 WBC 12.43 H (4.8-10.8) K/uL RBC 3.69 L (4.7-6.1) M/uL Hgb 11.0 L (14.0-18.0) g/dL Hct 34.8 L (42-52) % MCV 94.3 (80-100) fL MCH 29.8 (25-34) pg MCHC 31.6 L (32-36) g/dL RDW Std Deviation 42.9 (36.4-46.3) fL RDW Coeff of Buzz 12.5 (11.5-14.5) % Plt Count 149 (130-400) K/uL MPV 10.6 H (7.4-10.4) fL PT (9.0-12.0) Seconds INR (0.9-1.1) Sodium (136-145) mmol/L Potassium (3.5-5.1) mmol/L Chloride (98-107) mmol/L Carbon Dioxide (21-32) mmol/L Anion Gap (3-11) BUN (7-18) mg/dl Creatinine (0.6-1.4) mg/dl Est Cr Clr Drug Dosing ml/min Est GFR ( Amer) Est GFR (Non-Af Amer) BUN/Creatinine Ratio (10-20) Glucose (70-99) mg/dl POC Glucose 113 H 118 H (70-99) Calcium (8.5-10.1) mg/dl 10/02/18 10/02/18 10/02/18 Range/Units 20:39 16:48 14:36 WBC (4.8-10.8) K/uL RBC (4.7-6.1) M/uL Hgb (14.0-18.0) g/dL Hct (42-52) % MCV (80-100) fL MCH (25-34) pg MCHC (32-36) g/dL RDW Std Deviation (36.4-46.3) fL RDW Coeff of Buzz (11.5-14.5) % Plt Count (130-400) K/uL MPV (7.4-10.4) fL PT (9.0-12.0) Seconds INR (0.9-1.1) Sodium (136-145) mmol/L Potassium (3.5-5.1) mmol/L Chloride (98-107) mmol/L Carbon Dioxide (21-32) mmol/L Anion Gap (3-11) BUN (7-18) mg/dl Creatinine (0.6-1.4) mg/dl Est Cr Clr Drug Dosing ml/min Est GFR ( Amer) Est GFR (Non-Af Amer) BUN/Creatinine Ratio (10-20) Glucose (70-99) mg/dl POC Glucose 165 H 118 H 111 H (70-99) Calcium (8.5-10.1) mg/dl
--- NOTE | 2018-10-03 10:56 | Hospitalist Progress Note ---
Date of Service October 03, 2018 Assessment & Plan (1) Tricompartment osteoarthritis of right knee: - S/P R TKA with Dr. Sen on 10/02 without any complications - DVT prophylaxis - Coumadin - Post-operative surgical care per primary team (2) Atrial fibrillation: - Paroxysmal - patient states he had a brief course of this but to his knowledge has been NSR; Also carries a H/O VT S/P Pacer/AICD - states he was shocked only once due to lead malfunction when first placed but never had a shock since -- Believes his Pacer/AICD limits are 50-180 - HR largely in the 50s - Continue Coreg 25 mg BID; Coumadin has been restarted and currently INR 1.2 - CHADs-VASC is 4; No need to bridge prior to discharge (3) Hypertension: - Elevated but stable - Continue Coreg BID; Utilize Enalapril for Quinapril interchange while hospitalized (4) Diabetes mellitus, type 2: - Hold Metformin and Repaglinid and cover with SSI; May resume on D/C (5) DVT prophylaxis: - Coumadin Disposition: Patient is stable in regards to his chronic medical conditions. Recommend to continue home regimen as previously prescribed. Continue to trend his INR with routine outpatient checking for stability. No medical reason to hold discharge when deemed suitable from orthopedics standpoint. Hospitalist service will sign off at this time. However, do not hesitate to contact us for any acute change in medical status. Subjective Reports feeling well today. States pain is largely controlled. Having a lot of output from his drain. Tolerating diet without issue. No SOB or CP. Was walking in his room on my arrival and rather steady with gait. He verbalizes no other complaints Constitutional: see below, no fever, no chills, no fatigue and no weakness Eyes: no worsening vision Ear, Nose, Mouth, Throat: no sore throat and no dysphagia Respiratory: no cough, no dyspnea and no dyspnea on exertion Cardiovascular: no chest pain, no palpitations and no edema Gastrointestinal: no abdominal pain, no nausea, no vomiting, no constipation and no diarrhea/loose stools Genitourinary (Male): no dysuria Musculoskeletal: + joint pain (minimal in R knee but controlled) Integumentary: no rash Neurologic: no unsteadiness Physical Exam Vital Signs (Past 24 Hours): Last Vital Signs Temp 36.5 C 04/04/19 04:00 Pulse 50 L 10/03/18 04:00 Resp 18 10/03/18 04:00 BP 150/69 H 10/03/18 04:00 Pulse Ox 96 10/03/18 04:00 Constitutional: WD/WN, vitals as above Eyes: + anicteric sclerae ENMT: Ears: no hearing impairment Neck: normal visual inspection and trachea midline Respiratory: normal respiratory effort, lungs clear to auscultation Cardiovascular: RRR, no murmur, no edema Chest (Breasts): Chest: + pacemaker Gastrointestinal (Abdomen): Inspection/Auscultation: normal bowel sounds Percussion/Palpation: abdomen soft; abdomen nontender Musculoskeletal: Head/Neck/Chest: normocephalic and head atraumatic Extremities: no cyanosis and no clubbing Knee: + knee abnormal to inspection (Right knee bandaged) and + surgical drain present R knee with ORESTES wrap C/D/I with drain present Skin: no rashes, warm and dry Neurologic: moves all extremities and awake Psychiatric: A+Ox3, euthymic affect Orientation: oriented to person and cooperative
[2018-10-03] MEDS: OXYCODONE HCL IR 5 MG TAB (IMMEDIATE RELEASE) PO PRN (11:40)
--- NOTE | 2018-10-03 14:23 | Pharmacy Report ---
Pharmacy Glycemic Short Note 2 - Date of Service October 03, 2018 - Glycemic Short BSG Results (Last 24 hours): 10/02/18 10/02/18 10/02/18 14:36 16:48 20:39 Glucose POC Glucose 111 H 118 H 165 H 10/03/18 10/03/18 10/03/18 00:17 03:57 07:35 Glucose 124 H POC Glucose 118 H 113 H 10/03/18 10/03/18 08:17 11:59 Glucose POC Glucose 113 H 97 OUTPATIENT ANTIDIABETIC REGIMEN: * Prandin 0.5mg TIDM, Metformin ASSESSMENT: * I met with Mr. Burch bedside. He is very knowledgeable of his type 2 diabetes. I did address his A1C of 5.3% with him. He does not endorse any lows and knows to skip Prandin when he skips a meal. He checks his BSGs 3x/D. Further, he does not report any new weight gain. * He did tell me that his PCP will likely d/c his Prandin once his knee allows him to walk/exercise. PLAN FOR INPATIENT GLYCEMIC CONTROL: * Hold outpatient oral diabetes medications * Basal insulin * no longer indicated at this juncture * Bolus insulin - loosened * NovoLog per scale ACHS or Q6hrs while NPO * Goal Range: Low 120 mg/dL - High 160 mg/dL * Correction Factor: 25 mg/dL/unit * Nutritional / Prandial insulin per carb ratio of 1 unit per 7 grams CHO consumed Discharge Recs: Would continue meds per outpt provider, given that he is not having lows at home. Can likely d/c prandin once he is able to exercise.
[2018-10-03] MEDS: ORTHO WARFARIN NOMOGRAM SCH (14:40)
[2018-10-03] MEDS ORDERED: WARFARIN SOD 5 MG TAB PO SCH (16:00)
[2018-10-03] MEDS ORDERED: INSULIN GLARGINE SOLOSTAR 100 UNITS/ML 3 ML PEN SQ SCH (21:00)
[2018-10-03] MEDS: TAMSULOSIN HCL 0.4 MG CAP PO SCH (21:52)
[2018-10-03] MEDS: SENNA 8.6 MG TAB PO SCH (21:53)
[2018-10-04] MEDS: OXYCODONE HCL IR 5 MG TAB (IMMEDIATE RELEASE) PO PRN ×2 (00:48→07:52)
[2018-10-04 05:36] LABS: Basophils # (auto) 0.05 K/uL (0-0.2); Basophils % (auto) 0.5 %; Eosinophils # (auto) 0.24 K/uL (0-0.5); Eosinophils % (auto) 2.6 %; Hematocrit (blood only) 32.5 % (42-52); Hemoglobin 10.4 g/dL (14.0-18.0); Immature Granulocytes # (auto) 0.03 K/uL (0.00-0.02); Immature Granulocytes % (auto) 0.3 %; Lymphocytes # (auto) 1.45 K/uL (1.2-3.4); Lymphocytes % (auto) 15.7 %; Mean Corpuscular Volume 93.9 fL (80-100); Mean Platelet Volume 10.4 fL (7.4-10.4); Monocytes # (auto) 1.05 K/uL (0.11-0.59); Monocytes % (auto) 11.4 %; Neutrophils # (auto) 6.39 K/uL (1.4-6.5); Neutrophils % (auto) 69.5 %; Platelet Count 133 K/uL (130-400); RDW Coefficient of Variation 12.7 % (11.5-14.5); RDW Standard Deviation 43.2 fL (36.4-46.3); Red Blood Count 3.46 M/uL (4.7-6.1); White Blood Count 9.21 K/uL (4.8-10.8)
[2018-10-04] MEDS: ACETAMINOPHEN 500 MG TAB PO SCH (05:51)
[2018-10-04 06:40] LABS: INR 1.2 (0.9-1.1); Prothrombin Time 12.2 Seconds (9.0-12.0)
--- NOTE | 2018-10-04 07:41 | Orthopedic Progress Note ---
Date of Service October 04, 2018 Assessment & Plan (1) Tricompartment osteoarthritis of right knee: POD #2 s/o right TKA PT/OT; WBAT DVT Proph - Coumadin,SCD's, [place]'s, if discharged today will resume normal home regimen of Coumadin and have INR checked on Sunday. Pain managment as written will recheck after PT today, pain med with breakfast this morning. DC plans - OPPT Subjective POD 2 s/p Right TKA Pt sitting in beside chair getting ready to eat breakfast. overall feels well but was a little dizzy when going to the bathroom. Pain controlled presently. Denies SOB,CP. Physical Exam 2 Vital Signs (Past 24 Hours): Last Vital Signs Temp 36.3 C L 10/04/18 06:28 Pulse 66 10/04/18 06:28 Resp 16 10/04/18 06:28 BP 164/77 H 10/04/18 06:28 Pulse Ox 94 10/04/18 06:28 Constitutional: WD/WN, vitals as above no acute distress Musculoskeletal: Right knee: NVDI, calf SNT, negative keerthi sign. DP palpable, able to wiggle toes/ankle movement without difficulty. ESTHER dressing clean dry and intact. expected post-operative bruising noted. Results & Data Laboratory Results Laboratory Results WBC 9.21 K/uL (4.8-10.8) 10/04/18 05:22 RBC 3.46 M/uL (4.7-6.1) L 10/04/18 05:22 Hgb 10.4 g/dL (14.0-18.0) L 10/04/18 05:22 Hct 32.5 % (42-52) L 10/04/18 05:22 MCV 93.9 fL (80-100) 10/04/18 05:22 MCH 30.1 pg (25-34) 10/04/18 05:22 MCHC 32.0 g/dL (32-36) 10/04/18 05:22 RDW Std Deviation 43.2 fL (36.4-46.3) 10/04/18 05:22 RDW Coeff of Buzz 12.7 % (11.5-14.5) 10/04/18 05:22 Plt Count 133 K/uL (130-400) 10/04/18 05:22 MPV 10.4 fL (7.4-10.4) 10/04/18 05:22 Immature Gran % (Auto) 0.3 % 10/04/18 05:22 Neut % (Auto) 69.5 % 10/04/18 05:22 Lymph % (Auto) 15.7 % 10/04/18 05:22 [place] % (Auto) 11.4 % 10/04/18 05:22 Eos % (Auto) 2.6 % 10/04/18 05:22 Baso % (Auto) 0.5 % 10/04/18 05:22 Immature Gran # (Auto) 0.03 K/uL (0.00-0.02) H 10/04/18 05:22 Neut # (Auto) 6.39 K/uL (1.4-6.5) 10/04/18 05:22 Lymph # (Auto) 1.45 K/uL (1.2-3.4) 10/04/18 05:22 [place] # (Auto) 1.05 K/uL (0.11-0.59) H 10/04/18 05:22 Eos # (Auto) 0.24 K/uL (0-0.5) 10/04/18 05:22 Baso # (Auto) 0.05 K/uL (0-0.2) 10/04/18 05:22 PT 12.2 Seconds (9.0-12.0) H 10/04/18 05:22 INR 1.2 (0.9-1.1) H 10/04/18 05:22 APTT 30.0 Seconds (21.0-31.0) 10/02/18 07:16 PTT Ratio 1.1 10/02/18 07:16 Sodium 143 mmol/L (136-145) 10/03/18 07:35 Potassium 3.9 mmol/L (3.5-5.1) 10/03/18 07:35 Chloride 111 mmol/L (98-107) H 10/03/18 07:35 Carbon Dioxide 28 mmol/L (21-32) 10/03/18 07:35 Anion Gap 5.0 (3-11) 10/03/18 07:35 BUN 15 mg/dl (7-18) 10/03/18 07:35 Creatinine 0.86 mg/dl (0.6-1.4) 10/03/18 07:35 Est Cr Clr Drug Dosing 104.5 ml/min 10/03/18 07:35 Est GFR ( Amer) 98.3 10/03/18 07:35 Est GFR (Non-Af Amer) 84.8 10/03/18 07:35 BUN/Creatinine Ratio 17.4 (10-20) 10/03/18 07:35 Glucose 124 mg/dl (70-99) H 10/03/18 07:35 POC Glucose 106 (70-99) H 10/03/18 20:44 Estimat Average Glucose 105 mg/dl 09/18/18 11:26 Hemoglobin A1c 5.3 % (4.5-5.6) 09/18/18 11:26 Calcium 9.6 mg/dl (8.5-10.1) 10/03/18 07:35 Albumin 3.8 gm/dl (3.4-5.0) 09/18/18 11:26 Urine Color Yellow 09/18/18 Unknown Urine Appearance Clear (Clear) 09/18/18 Unknown Urine pH 5.5 (4.5-7.5) 09/18/18 Unknown Ur Specific [place] 1.010 (1.000-1.030) 09/18/18 Unknown Urine Protein Negative (Negative) 09/18/18 Unknown Urine Glucose (UA) Negative (Negative) 09/18/18 Unknown Urine Ketones Negative (Negative) 09/18/18 Unknown Urine Blood 3+ (Negative) H 09/18/18 Unknown Urine Nitrite Negative (Negative) 09/18/18 Unknown Urine Bilirubin Negative (Negative) 09/18/18 Unknown Urine Urobilinogen Negative (Negative) 09/18/18 Unknown Ur Leukocyte Esterase 1+ (Negative) H 09/18/18 Unknown Urine WBC (Auto) 5-10 /hpf (0-5) H 09/18/18 Unknown Urine RBC (Auto) 0-4 /hpf (0-4) 09/18/18 Unknown U Hyaline Cast (Auto) 1-5 /lpf (0-5) 09/18/18 Unknown U Epithel Cells (Auto) 0-5 /lpf (0-5) 09/18/18 Unknown Urine Bacteria (Auto) Negative (Negative) 09/18/18 Unknown Blood Type O Positive 09/18/18 11:26 Antibody Screen NEGATIVE 09/18/18 11:26
[2018-10-04] MEDS: CARVEDILOL 25 MG TAB PO SCH (07:55)
[2018-10-04] MEDS: CETIRIZINE HCL 10 MG TABLET PO SCH (07:57)
[2018-10-04] MEDS ORDERED: METFORMIN HCL 500 MG TAB PO SCH (09:00)
[2018-10-04] MEDS: DOCUSATE SODIUM 100 MG CAP PO SCH (10:30)
[2018-10-04] MEDS: FERROUS SULFATE 325 MG TAB PO SCH (10:31)
[2018-10-04] MEDS: ATORVASTATIN 10 MG TAB PO SCH (10:31)
[2018-10-04] MEDS: MULTIVITAMIN TAB PO SCH (10:31)
--- NOTE | 2018-10-04 10:39 | Pharmacy Report ---
Pharmacy Glycemic Short Note 2 - Date of Service October 04, 2018 - Glycemic Short BSG Results (Last 24 hours): 10/03/18 10/03/18 10/03/18 11:59 17:09 20:44 POC Glucose 97 90 106 H 10/04/18 06:14 POC Glucose 85 OUTPATIENT ANTIDIABETIC REGIMEN: * Prandin 0.5mg TIDM, Metformin ASSESSMENT: * 77yo T2DM male with excellent outpatient control- likely too tight of control as A1c is below target A1c. * Pt denies hypoglycemia at home. He checks his BSGs 3x/D. Further, he does not report any new weight gain. * Hyperglycemia effects of Dexamethasone PO given pre-operatively have likely dissipated. Stopped basal insulin yesterday. Will likely need to dc all insulin today and prep for discharge. Will resume metformin but continue to hold prandin. PLAN FOR INPATIENT GLYCEMIC CONTROL: * Re-initiate outpatient oral diabetes medications that do not have a risk of hypo * Metformin 500mg BIDM * Basal insulin * Not needed based on AM fasting BSGs and A1c * Bolus insulin - loosened * NovoLog per scale ACHS or Q6hrs while NPO * Goal Range: Low 120 mg/dL - High 160 mg/dL * Correction Factor: 25 mg/dL/unit * DC CR/prandial insulin Discharge Recs: Would continue meds per outpt provider, given that he is not having lows at home. Can likely d/c prandin once he is able to exercise per PCP recommendation.
[2018-10-04] MEDS: INSULIN ASPART 100 UNITS/ML 3 ML PEN SC SCH (10:49)
--- NOTE | 2018-10-06 19:05 | Discharge Summary ---
Date of Service Date of Discharge: October 04, 2018 Date of Admission: 10/02/18 Admission HPI Per Admitting Provider Mr Roberts is a 77 year old male who is here for a follow up of right knee pain, presents for pre-op evaluation prior to Right total knee replacement on 10/02/18. His PCP is Dr. Crowe. Patient states that he has a walker at home. Patient gets Tramadol from pain management and he has been taking it since 2016. He presents with pain and crepitus on the right side. He states that the symptoms have been chronic non-traumatic and the symptoms occur constantly. Currently the patient states that the symptoms are mild-moderate. The pain is described as aching, discomforting and throbbing. The symptoms occur intermittently. He rates his current pain as 3/10, worst is 7/10. The symptoms are aggravated by ascending stairs, descending stairs, daily activities, first steps while awake and walking. In addition to right knee pain the patient is also experiencing limping. Patient takes Coumadin daily. Patient takes Tramadol for pain. He has undergone prior Euflexxa injection with no relief. Principal Diagnosis right knee osteoarthritis Discharge Exam Constitutional WD/WN, vitals as above no acute distress Musculoskeletal right knee: NVDI, calf SNT, negative keerthi sign. DP palpable, able to wiggle to es/ankle movement without difficulty. ESTHER dressing clean dry and intact. expected post-operative bruising noted. Discharge Data Allergies Allergy/AdvReac Type Severity Reaction Status Date / Time No Known Allergies Allergy Verified 10/02/18 07:33 Consultations 10/02/18 12:02 Consult Case Management - Discharge Planning Routine Consult Hospitalist Routine Procedures Performed Operation Date: 10/02/18 09:40 Actual Procedures p Right Total Knee Arthroplasty(Right) - Domingo Sen DO Ordered Studies 10/02/18 05:00 US - OR guided needle placemen Routine Hospital Course (1) Tricompartment osteoarthritis of right knee: POD #2 s/o right TKA PT/OT; WBAT DVT Proph - Coumadin,SCD's, [place]'s, if discharged today will resume normal home regimen of Coumadin and have INR checked on Sunday. Pain managment as written will recheck after PT today, pain med with breakfast this morning. DC plans - OPPT Patient was a same day admission after undergoing a successful right TKA. he tolerated the procedure well. Post-operatively, his activity was progressed and well tolerated. Please refer to daily progress notes and PT notes for complete details. After exam on 10/04/18, patient felt to be stable for discharge with OPPT. Patient will f/u in the office in 2 weeks for further evaluation including x-rays and incision check, sooner if having any issues or concerns. Below are pertinent labs/studies during their hospital stay: Laboratory Results WBC 9.21 K/uL (4.8-10.8) 10/04/18 05:22 RBC 3.46 M/uL (4.7-6.1) L 10/04/18 05:22 Hgb 10.4 g/dL (14.0-18.0) L 10/04/18 05:22 Hct 32.5 % (42-52) L 10/04/18 05:22 MCV 93.9 fL (80-100) 10/04/18 05:22 MCH 30.1 pg (25-34) 10/04/18 05:22 MCHC 32.0 g/dL (32-36) 10/04/18 05:22 RDW Std Deviation 43.2 fL (36.4-46.3) 10/04/18 05:22 RDW Coeff of Buzz 12.7 % (11.5-14.5) 10/04/18 05:22 Plt Count 133 K/uL (130-400) 10/04/18 05:22 MPV 10.4 fL (7.4-10.4) 10/04/18 05:22 Immature Gran % (Auto) 0.3 % 10/04/18 05:22 Neut % (Auto) 69.5 % 10/04/18 05:22 Lymph % (Auto) 15.7 % 10/04/18 05:22 [place] % (Auto) 11.4 % 10/04/18 05:22 Eos % (Auto) 2.6 % 10/04/18 05:22 Baso % (Auto) 0.5 % 10/04/18 05:22 Immature Gran # (Auto) 0.03 K/uL (0.00-0.02) H 10/04/18 05:22 Neut # (Auto) 6.39 K/uL (1.4-6.5) 10/04/18 05:22 Lymph # (Auto) 1.45 K/uL (1.2-3.4) 10/04/18 05:22 [place] # (Auto) 1.05 K/uL (0.11-0.59) H 10/04/18 05:22 Eos # (Auto) 0.24 K/uL (0-0.5) 10/04/18 05:22 Baso # (Auto) 0.05 K/uL (0-0.2) 10/04/18 05:22 PT 12.2 Seconds (9.0-12.0) H 10/04/18 05:22 INR 1.2 (0.9-1.1) H 10/04/18 05:22 APTT 30.0 Seconds (21.0-31.0) 10/02/18 07:16 PTT Ratio 1.1 10/02/18 07:16 Sodium 143 mmol/L (136-145) 10/03/18 07:35 Potassium 3.9 mmol/L (3.5-5.1) 10/03/18 07:35 Chloride 111 mmol/L (98-107) H 10/03/18 07:35 Carbon Dioxide 28 mmol/L (21-32) 10/03/18 07:35 Anion Gap 5.0 (3-11) 10/03/18 07:35 BUN 15 mg/dl (7-18) 10/03/18 07:35 Creatinine 0.86 mg/dl (0.6-1.4) 10/03/18 07:35 Est Cr Clr Drug Dosing 104.5 ml/min 10/03/18 07:35 Est GFR ( Amer) 98.3 10/03/18 07:35 Est GFR (Non-Af Amer) 84.8 10/03/18 07:35 BUN/Creatinine Ratio 17.4 (10-20) 10/03/18 07:35 Glucose 124 mg/dl (70-99) H 10/03/18 07:35 POC Glucose 85 (70-99) 10/04/18 06:14 Estimat Average Glucose 105 mg/dl 09/18/18 11:26 Hemoglobin A1c 5.3 % (4.5-5.6) 09/18/18 11:26 Calcium 9.6 mg/dl (8.5-10.1) 10/03/18 07:35 Albumin 3.8 gm/dl (3.4-5.0) 09/18/18 11:26 Urine Color Yellow 09/18/18 Unknown Urine Appearance Clear (Clear) 09/18/18 Unknown Urine pH 5.5 (4.5-7.5) 09/18/18 Unknown Ur Specific [place] 1.010 (1.000-1.030) 09/18/18 Unknown Urine Protein Negative (Negative) 09/18/18 Unknown Urine Glucose (UA) Negative (Negative) 09/18/18 Unknown Urine Ketones Negative (Negative) 09/18/18 Unknown Urine Blood 3+ (Negative) H 09/18/18 Unknown Urine Nitrite Negative (Negative) 09/18/18 Unknown Urine Bilirubin Negative (Negative) 09/18/18 Unknown Urine Urobilinogen Negative (Negative) 09/18/18 Unknown Ur Leukocyte Esterase 1+ (Negative) H 09/18/18 Unknown Urine WBC (Auto) 5-10 /hpf (0-5) H 09/18/18 Unknown Urine RBC (Auto) 0-4 /hpf (0-4) 09/18/18 Unknown U Hyaline Cast (Auto) 1-5 /lpf (0-5) 09/18/18 Unknown U Epithel Cells (Auto) 0-5 /lpf (0-5) 09/18/18 Unknown Urine Bacteria (Auto) Negative (Negative) 09/18/18 Unknown Blood Type O Positive 09/18/18 11:26 Antibody Screen NEGATIVE 09/18/18 11:26 Total Time Total Time Spent Total Time Spent (In Minutes): 20 Total Time Includes: Examination of the Patient, Discharge Planning and Medication Reconciliation Discharge Plan Discharge Items Patient Disposition: Home - Self-Care Reason For Visit: RIGHT KNEE OSTEOARTHRITIS Discharge Diagnosis: right total knee replacement Condition: Good Discharge Goals: Decrease discomfort, Improve disease control, Improve function and Increase independence Activity: Per 'Additional Instructions' section Lifting: Wait until after follow-up appointment Driving/Machine Use Comment: no driving until cleared by your surgeon Weightbearing: Right weightbearing Weightbearing Comment: WBAT with walker Non-emergency contact: Primary Care Provider and Surgeon Call non-emergency contact if: you have any medication questions, your temperature is above 101, your wound has increased redness, your wound has increased drainage and your wound pain has increased Follow-up/Referrals: Jose Ramon Crowe [Primary Care Provider] - Diet: Carb Consistent or DM2 Addtl Provider Instructions: ACTIVITY RECOMMENDATIONS: SELF CARE INSTRUCTIONS AFTER TOTAL KNEE REPLACEMENT A. You may need to continue a physical therapy program after discharge from the hospital. There are several options available to you. Your doctor will assist you in selecting the best one for you. 1. An out-patient facility 2 to 3 times a week for therapy or home therapy. 2. Continue working on all exercises taught to you in the hospital. Your goals should be to increase bending of your knee to 90 degrees and beyond and to fully straighten your knee. B. You may progress at your own pace from walking with a walker or crutches to a cane; then to no assistive devices. C. Make walking a part of your daily routine. Be up as much as comfortable with rest periods throughout the day. Rest with leg elevation is very important. Use the ice wrap frequently for the first 3-4 weeks. D. There are no restrictions on activities. You may ride in a car, shop, participate in interactive marketing strategist and all social activities. E. Wear the long elastic stockings ([place] hose) 20 hours a day for 2 weeks after surgery. They can be removed several times a day for laundering and for a bath. F. You may shower, no tub baths until cleared by your doctor. SPECIAL CARE INSTRUCTIONS: VERY IMPORTANT TO READ AND REVIEW A. There are a few signs you need to watch for after you are home. Call [facility] if you notice any of the followin. Increased severe knee pain. Some pain is expected especially when you exercise. 2. Increased swelling in your leg or knee; pain or swelling of the calf muscle in either lower leg. 3. Any fluid drainage from the incision. 4. Shortness of breath or chest pain. B. Please call [facility] at if you have any concerns or questions about your operation or recovery. The doctor or his nurse will return your call promptly. C. You must take antibiotics before dental work, bladder, bowel or other surgery. Your doctor will provide you with a permanent care to carry describing this precaution. IMPORTANT: * RESUME YOUR COUMADIN DAILY. MAKE SURE YOU CHECK YOUR INR REGULARLY THE FIRST WEEK TO MAKE SURE IT IS STAYING BETWEEN 2 AND 3. FOLLOW UP WITH YOUR [facility] PHYSICIAN WITH THESE NUMBERS. * CALL IF INCREASED PAIN, REDNESS, DRAINAGE OR FEVER GREATER THAT 101. * WEAR [place] HOSE 20 HOURS PER DAY FOR 2 WEEKS. * ESTHER Dressing- This is a large suction dressing covering your incision. This will help pull any excess drainage from the wound and allow your incision to heal properly. You may shower with this if you can keep the unit outside of the shower. If any bleeding or leakage is noted please call your doctor's office. This will remain on your incision for 7 days and then should be removed. This can be done yourself or by the home nursing staff if applicable. The entire unit is disposable once removed. Once removed, keep incision clean and dry. If redness or drainage is noted, please call your surgeon. *ONCE ESTHER IS REMOVED, FOLLOW THESE INSTRUCTIONS: DERMABOND Prineo- This is a mesh tape dressing that is covered with glue. It should remain in place until the incision is properly healed, usually 10-14 d ays. This dressing is designed to naturally slough off. You may trim the excess mesh tape as it peels off. Incision may be briefly wet in a shower. Dry immediately by blotting with a clean, dry towel. Do not bath or swim until instructed by your doctor. Do not scratch, rub, or pick at the dressing. Do not apply any topical ointments or lotions until dressing is completely removed and/or instructed by your doctor. There may be a small piece of suture material at one end of your incision. Do not pull or trim this. If it is bothersome or catching on clothing, you may cover it with a band-aid. IF INCISION IS LEAKING THROUGH DRESSING, CALL THE OFFICE . FOLLOW UP VISIT: If appointment is not already scheduled: Please call [facility] to make a follow-up appointment for 2 weeks after your surgery at . Prescriptions: New acetaminophen [Pain Reliever] 500 mg Tablet 1,000 mg PO Q8 14 Days Qty: 84 RF: 0 oxycodone 5 mg Tablet 5 - 10 mg PO .q4-6h PRN (Reason: pain) Qty: 30 RF: 0 sennosides [Senokot] 8.6 mg Tablet 17.2 mg PO HS Qty: 30 RF: 0 cefadroxil 500 mg capsule 500 mg PO BID Qty: 28 RF: 1 Continued multivitamin Tablet 1 tab PO QAM RF: 0 metformin 500 mg Tablet 500 mg PO BID RF: 0 carvedilol 25 mg Tablet 25 mg PO BID RF: 0 cetirizine [Zyrtec] 10 mg Tablet 10 mg PO QAM RF: 0 atorvastatin 10 mg Tablet 10 mg PO QAM RF: 0 sildenafil [Viagra] 100 mg Tablet 100 mg PO DAILY PRN (Reason: Erectile Dysfunction) RF: 0 garlic 1,000 mg Capsule 1,000 mg PO QAM RF: 0 quinapril 10 mg Tablet 10 mg PO QAM RF: 0 tamsulosin 0.4 mg Capsule 0.4 mg PO HS RF: 0 ferrous sulfate [iron] 325 mg (65 mg iron) Tablet 325 mg PO QAM RF: 0 warfarin 5 mg Tablet 5 mg PO UD RF: 0 repaglinide [Prandin] 1 mg Tablet 0.5 mg PO TID RF: 0 Discontinued tramadol 50 mg Tablet 50 mg PO TID PRN (Reason: Pain) RF: 0 Stand-Alone Forms: [facility] Discharge Orders: Discharge Order (Routine); Ordered 10/04/18 Ordered By: Elmer Baig Admission Data Admit Date/Time: 10/02/18 11:51 Attending Provider: Domingo Sen Admit Provider: Domingo Sen Primary Care Provider: Jose Ramon Crowe Other Providers: Domingo Pastrana Service: Surgical Services Other Interventions: Discharge Summary Assessment (RN) Last Done: 10/04/18 12:43 DC Date/Time DO NOT enter until pt leaves facility: 10/04/18 13:10
== END 2018-10-04 13:10 | disposition home or self-care (01) | DRG 470 ==
LOC: ASU 06:19 → 3N 11:51